=== PATIENT | female | born 1940 | race Caucasian/White ===

== ENCOUNTER → 2023-12-05 08:18 | Outpatient (REF) | payer OTHER, SELFPAY | LOC: DHCBC/DCA 08:18 | PROVIDERS: ATTENDING PHYSICIAN Internal Medicine | DX: R06.02 Shortness of breath (principal); R68.84 Jaw pain | CPT/HCPCS: 78452; 93017; A9500; J2785 ==

== ENCOUNTER → 2024-01-30 09:39 | Outpatient (REF) | payer OTHER, SELFPAY ==
[2024-01-30 11:28] LABS: Glycohemoglobin (HgbA1c) 6.7 % (4.0-5.6)
[2024-01-30 11:46] LABS: ALT (SGPT) 22 U/L (0-35); AST (SGOT) 49 U/L (14-36); Albumin 4.7 g/dl (3.5-5.0); Alkaline Phosphatase 72 U/L (38-126); Direct Bilirubin 0.2 mg/dl (0.0-0.4); Glucose 116 mg/dl (70-99); HDL Cholesterol 41 mg/dl; LDL Cholesterol, Calculated 134 mg/dl; Total Bilirubin 0.9 mg/dl (0.2-1.3); Total Cholesterol 238 mg/dl (50-199); Triglyceride 316 mg/dl (10-149); Very Low Density Lipoprotein 63 mg/dl (0-30)
== END ==
LOC: REG 09:39
PROVIDERS: ATTENDING PHYSICIAN Internal Medicine
DX: E11.9 Type 2 diabetes mellitus without complications (principal); E78.5 Hyperlipidemia, unspecified; I10 Essential (primary) hypertension; E66.9 Obesity, unspecified
CPT/HCPCS: 36415; 80061; 80076; 82947; 83036

== ENCOUNTER → 2024-02-08 12:51 | Outpatient (REF) | payer OTHER, SELFPAY | LOC: WDC 12:51 | PROVIDERS: ATTENDING PHYSICIAN Obstetrics & Gynecology; FAMILY PHYSICIAN Internal Medicine | DX: Z12.31 Encounter for screening mammogram for malignant neoplasm of breast (principal) | CPT/HCPCS: 77063; 77067 ==

== ENCOUNTER → 2024-08-16 09:20 | Outpatient (REF) | payer OTHER, SELFPAY ==
[2024-08-16 11:29] LABS: ALT (SGPT) 20 U/L (0-35); AST (SGOT) 33 U/L (14-36); Albumin 4.6 g/dl (3.5-5.0); Alkaline Phosphatase 74 U/L (38-126); Glucose 110 mg/dl (70-99); HDL Cholesterol 41 mg/dl; LDL Cholesterol, Calculated 156 mg/dl; Total Bilirubin 0.7 mg/dl (0.2-1.3); Total Cholesterol 231 mg/dl (50-199); Total Protein 7.5 g/dl (6.3-8.2); Triglyceride 171 mg/dl (10-149); Very Low Density Lipoprotein 34 mg/dl (0-30)
== END ==
LOC: REG 09:20
PROVIDERS: ATTENDING PHYSICIAN Internal Medicine
DX: E11.9 Type 2 diabetes mellitus without complications (principal); E78.5 Hyperlipidemia, unspecified; I10 Essential (primary) hypertension; Z68.31 Body mass index [BMI] 31.0-31.9, adult
CPT/HCPCS: 36415; 80061; 80076; 82947; 83036

== ENCOUNTER → 2024-11-01 09:36 | Outpatient (REF) | payer OTHER, SELFPAY ==
[2024-11-01 10:43] LABS: % Basophils 0.5 % (0-2); % Immature Granulocytes 0.6 % (0-0.5); % Lymphocytes 24.2 % (20.5-51.1); % Neutrophils 61.7 % (42.2-75.2); Absolute Eosinophils 0.3 10^3/uL (0-0.7); Absolute Immature Granulocytes 0.1 10^3/uL (0-0.05); Absolute Lymphocytes 1.9 10^3/uL (1.2-3.4); Absolute Monocytes 0.7 10^3/uL (0.1-0.6); Absolute Neutrophils 4.8 10^3/uL (1.4-6.5); Hematocrit 47.5 % (37.0-47.0); Hemoglobin 15.6 g/dL (12.0-16.0); Mean Corp Hgb Conc. 32.8 g/dL (33.0-37.0); Mean Corpuscular Hgb 28.7 pg (27.0-31.0); Mean Corpuscular Volume 87.5 fL (81.0-99.0); Mean Platelet Volume 11.7 fL (7.4-10.4); Nucleated Red Blood Cells % 0 %; Platelet Count 178 10^3/uL (130-400); Red Blood Cell Count 5.43 10^6/uL (4.20-5.40); Red Cell Dist. Width 14.1 % (11.5-14.5); White Blood Cell Count 7.8 10^3/uL (4.8-10.8)
[2024-11-01 10:52] LABS: ALT (SGPT) 18 U/L (0-35); AST (SGOT) 31 U/L (14-36); Albumin 4.5 g/dl (3.5-5.0); Alkaline Phosphatase 68 U/L (38-126); Blood Urea Nitrogen 18 mg/dl (7-17); Calcium 9.4 mg/dl (8.4-10.2); Carbon Dioxide 24 mmol/L (22-30); Chloride 104 mmol/L (98-107); Glucose 125 mg/dl (70-99); HDL Cholesterol 41 mg/dl; LDL Cholesterol, Calculated 150 mg/dl; Potassium 4.5 mmol/L (3.5-5.1); Sodium 140 mmol/L (135-145); Total Bilirubin 0.7 mg/dl (0.2-1.3); Total Cholesterol 238 mg/dl (50-199); Total Protein 7.5 g/dl (6.3-8.2); Triglyceride 235 mg/dl (10-149); Very Low Density Lipoprotein 47 mg/dl (0-30); eGFR > 60.00
== END ==
LOC: REG 09:36
PROVIDERS: ATTENDING PHYSICIAN Internal Medicine
DX: Z00.01 Encounter for general adult medical examination with abnormal findings (principal); I10 Essential (primary) hypertension; E78.5 Hyperlipidemia, unspecified; Z68.31 Body mass index [BMI] 31.0-31.9, adult; E11.9 Type 2 diabetes mellitus without complications
CPT/HCPCS: 36415; 80053; 80061; 83036; 85025

== ENCOUNTER → 2025-02-13 10:58 | Outpatient (REF) | payer OTHER, SELFPAY | LOC: WDC 10:58 | PROVIDERS: ATTENDING PHYSICIAN Obstetrics & Gynecology; FAMILY PHYSICIAN Internal Medicine | DX: Z12.31 Encounter for screening mammogram for malignant neoplasm of breast (principal) | CPT/HCPCS: 77063; 77067 ==

== ENCOUNTER → 2025-05-26 10:41 | Outpatient (REF) | payer OTHER, SELFPAY ==
[2025-05-26 11:55] LABS: ALT (SGPT) 17 U/L (0-35); AST (SGOT) 31 U/L (14-36); Albumin 4.2 g/dl (3.5-5.0); Alkaline Phosphatase 68 U/L (38-126); Glucose 120 mg/dl (70-99); HDL Cholesterol 35 mg/dl; LDL Cholesterol, Calculated 129 mg/dl; Total Protein 7.0 g/dl (6.3-8.2); Very Low Density Lipoprotein 41 mg/dl (0-30)
[2025-05-26 13:33] LABS: Glycohemoglobin (HgbA1c) 6.1 % (4.0-5.6)
== END ==
LOC: REG 10:41
PROVIDERS: ATTENDING PHYSICIAN Internal Medicine
DX: E11.9 Type 2 diabetes mellitus without complications (principal)
CPT/HCPCS: 36415; 80061; 80076; 82947; 83036